=== PATIENT | female | born 1965 | race Caucasian/White ===

== ENCOUNTER → 2016-12-22 | Outpatient (CLI) | payer BC ==
[~2016-12-22] MED LIST: EZET10TA38; LEVO25TA34
--- NOTE | 2016-12-25 08:01 | MAMMOGRAPHY REPORT ---
BILATERAL DIGITAL SCREENING MAMMOGRAM TOMOSYNTHESIS WITH CAD: 12/22/2016 CLINICAL HISTORY: Routine screening. Patient has no complaints. TECHNIQUE: Breast tomosynthesis in addition to standard 2D mammography was performed. Current study was also evaluated with a Computer Aided Detection (CAD) system. COMPARISON: Comparison is made to exams dated: 09/03/2015 mammogram, 04/28/2014 mammogram, and 2012 mammogram - [facility]. BREAST COMPOSITION: The tissue of both breasts is almost entirely fatty. FINDINGS: No suspicious masses, calcifications, or areas of architectural distortion are noted in ei ther breast. There has been no significant interval change compared to prior exams. IMPRESSION: ACR BI-RADS CATEGORY 1: NEGATIVE There is no mammographic evidence of malignancy. A 1 year screening mammogram is recommended. The pa tient will receive written notification of the results. Approximately 10% of breast cancers are not detected with mammography. A negative mammographic report should not delay biopsy if a clinically suggestive mass is present. Delfina Pérez M.D. ah/:12/22/2016 15:53:24 Regional Hr Manager: Rosa Alas RT(R)(M)(BD), [facility] letter sent: Normal 1/2 BI-RADS Code: ACR BI-RADS Category 1: Negative
== END | disposition home or self-care (01) ==
LOC: C.MAMM 15:15
PROVIDERS: ATTEND Obstetrics & Gynecology
DX: Z12.31 Encounter for screening mammogram for malignant neoplasm of breast (principal)

== ENCOUNTER 2022-05-23 07:35 | Inpatient (IN) ==
--- NOTE | 2022-05-23 07:56 | Emergency Department Note ---
Impression & Plan Stroke, Right arm weakness ED Provider Note NAME: TORY CARRILLO AGE: 57 SEX: F : 1965 ARRIVES VIA: Walk-In INFORMANT: Patient, ED PROVIDER(S): Justin Chambers DO CHIEF COMPLAINT: Right arm weakness HPI: Patient is a 57-year-old female who presents to the ER as she went to bed around 1:00. She woke up at 5:00 and noticed weakness in the right arm. Some around 6:00 she started noticed weakness and heaviness in the right leg and could not walk. Right leg has resolved. She has paresthesias and weakness still in the right arm. Denies any headache or change in vision. No chest pain or shortness of breath. No nausea, vomiting, or diarrhea. No dysuria, urgency, or frequency. No other exacerbating or remitting factors. PAST MEDICAL HISTORY:See Below PAST SURGICAL HISTORY:See Below FAMILY HISTORY:See Below SOCIAL HISTORY:See Below HOME MEDICATIONS:See Below ALLERGIES:See Below VITALS:See Below PHYSICAL EXAMINATION: GENERAL: Sitting up in bed, alert, well appearing, well nourished, no distress, non-toxic EYE EXAM: normal conjunctiva. PERRL and EOM's grossly intact. OROPHARYNX: no exudate, no erythema, lips, buccal mucosa, and tongue normal and mucous membranes are moist NECK: supple, no nuchal rigidity, no adenopathy, non-tender LUNGS: Clear to auscultation. Normal chest wall mechanics HEART: no murmurs, S1 normal and S2 normal ABDOMEN: abdomen soft, non-tender, normo-active bowel sounds, no masses, no rebound or guarding. UPPER EXTREMITIES: upper extremities are grossly normal. LOWER EXTREMITIES: No pitting edema. NEURO EXAM: Normal sensorium, cranial nerves II-XII grossly intact, normal speech, flexion-extension left shoulder elbow wrist and grasp 5 out of 5. Right shoulder elbow wrist and grasp 4 out of 5. no gross weakness of legs. No drift. [id number] intact. MEDICAL DECISION MAKING: Patient is a 57-year-old female who presents the ER for right upper extremity weakness. She was seen in triage and taken immediately to CT. Stroke alert was called. She had right upper extremity deficit. CTAs of the head and neck were negative. Discussed with [facility] stroke neurology. Patient is not a candidate for TNKase as last known well was 1 AM. She was updated in regards to this as well as the at bedside. CTs of the head as well as angios of the head and neck were negative. Patient was updated bedside. Telestroke neurology recommended 325 of aspirin as well as 300 mg of Plavix. She had no bleeding risk factors. She was updated and admitted to the hospitalist for further work-up. Discussed with Justin Trimble and Aaron from [facility] in regards to presentation work-up and treatment. external records were reviewed. Triage Nursing notes reviewed. Limited review of prior medical records performed Vital Signs: reviewed and remarkable for no significant abnormalities Differential diagnosis: Differential Diagnosis includes but is not limited to ischemic Stroke, hemorrhagic stroke, bells palsy, mass, neoplasm, migraine headache, seizure, subarachnoid hemorrhage, TIA, and transient global amnesia. ER treatment provided: See below Diagnostics interpreted by me include EKG and cardiac monitoring as listed below: -Cardiac Monitoring: An order was placed for continuous cardiac monitoring. The monitor shows a rate of 80 with sinus rhythm. -ECG: none -Laboratory studies:Interpreted by me as stated above in MDM and shown below. Imaging studies: Xrays: As interpreted by me: Portable AP upright 1 view of the chest shows no focal infiltrate CTs show: CT angios of the head and neck was negative Consultation(s): As described in MDM Procedures:none PDMP:reviewed and no issues Critical Care: None Past Med/Surg History Medical History (Updated 05/23/22 @ 13:22 by Justin Chambers DO) H/O varicella Postmenopausal bleeding Varicella Ventral hernia Surgical History (Updated 06/23/19 @ 15:10 by Trang Al MD, FACOG) H/O section H/O knee surgery History of dental surgery History of hernia surgery History of tubal ligation Family History (Updated 06/23/19 @ 14:51 by Tory Robb) Mother Diabetes Father Hypertension Grandfather Myocardial infarction Denies family history of Ovarian cancer Prostate cancer Breast cancer Colorectal cancer Social History (Updated 10/05/21 @ 08:28 by Aliza John) Smoking Status: Never smoker Hx Alcohol Use: Yes Alcohol type: wine Hx Substance Use: No Preferred Language: Sri [place]ankan Communication Ability: Effective Transformation Coach Required: No Beliefs That Will Affect Care: None marital status: Current Living Situation: Spouse Feels Safe at Home: Yes Assistive Devices: Glasses Allergies Allergies Allergy/AdvReac Type Severity Reaction Status Date / Time No Known Allergies Verified 10/05/21 08:26 Home Meds Home Medications Medication Instructions Recorded Confirmed atorvastatin 40 mg tablet 40 mg PO PM 01/27/19 10/05/21 levothyroxine 200 mcg capsule 225 mcg PO QAM 01/27/19 10/05/21 Results & Data (ED) Vital Signs Vital Signs - 24 hr 05/23/22 07:37 05/23/22 08:19 05/23/22 08:30 Temperature 36.6 C Temperature Source Temporal Artery Scan Pulse Rate 85 78 69 Respiratory Rate 18 18 15 Respiratory Effort / Characteristics Non-Labored Spontaneous Respiratory Depth Normal Respiratory Pattern Regular Blood Pressure 147/95 H Blood Pressure Mean 112 Blood Pressure Position Sitting Pulse Oximetry 95 95 95 Oxygen Delivery Method Room Air Room Air Room Air Sepsis Recent Fever Within 48 Hours No Sepsis New/Unexplained Change in Mental Status No Sepsis Action Taken by Nursing No Action Required 05/23/22 08:41 Temperature Temperature Source Pulse Rate Respiratory Rate Respiratory Effort / Characteristics Respiratory Depth Respiratory Pattern Blood Pressure 129/88 Blood Pressure Mean 101 Blood Pressure Position Pulse Oximetry Oxygen Delivery Method Sepsis Recent Fever Within 48 Hours Sepsis New/Unexplained Change in Mental Status Sepsis Action Taken by Nursing Laboratory Data 05/23/22 08:05 05/23/22 08:05 Lab Results 05/23/22 05/23/22 05/23/22 Range/Units 08:04 08:05 08:05 WBC 6.47 (4.8-10.8) K/ul RBC 5.14 (3.93-5.22) M/uL Hgb 15.5 (12.0-16.0) g/dl Hct 46.5 H (34.1-44.9) % MCV 90.5 (80.0-100.0) fL MCH 30.2 (25.0-34.0) pg MCHC 33.3 (32.0-36.0) g/dL RDW Std Deviation 47.0 H (36.4-46.3) fL RDW Coeff of Carlos 14.0 (11.5-14.5) % Plt Count 329 (130-400) K/uL MPV 9.7 (9.4-12.3) fL Immature Gran % (Auto) 0.3 % Neut % (Auto) 64.1 % Lymph % (Auto) 24.7 % Morrison % (Auto) 7.6 % Eos % (Auto) 1.9 % Baso % (Auto) 1.4 % Neut # (Auto) 4.15 (1.4-6.5) K/uL Lymph # (Auto) 1.60 (1.2-3.4) K/uL Morrison # (Auto) 0.49 (0.24-0.82) K/uL Eos # (Auto) 0.12 (0-0.50) K/uL Baso # (Auto) 0.09 (0-0.2) K/uL Immature Gran # (Auto) 0.02 (0.00-0.02) K/uL ESR (0-30) mm/hr PT 10.8 (9.0-12.0) Seconds INR 1.0 (0.9-1.1) APTT 28.0 (21.0-31.0) Seconds PTT Ratio 1.0 Sodium (136-145) mmol/L Potassium (3.5-5.1) mmol/L Chloride (98-107) mmol/L Carbon Dioxide (21-32) mmol/L Anion Gap (3-11) BUN (6-23) mg/dl Creatinine (0.6-1.2) mg/dl Est Cr Clr Drug Dosing ml/min Est GFR ( Amer) ml/min Est GFR (Non-Af Amer) ml/min BUN/Creatinine Ratio (10-20) Glucose (70-99(Fasting)) mg/dl POC Glucose 89 (70-99) mg/dl Lactate (0.4-2.0) mmol/L Calcium (8.5-10.1) mg/dl Magnesium (1.7-2.4) mg/dl Total Bilirubin (0.2-1.0) mg/dl AST (13-39) U/L ALT (7-52) U/L Alkaline Phosphatase (34-104) U/L Troponin I High Sens (0-14) pg/ml Total Protein (6.0-8.3) gm/dl Albumin (3.4-5.0) gm/dl Globulin (2.5-4.0) gm/dl Albumin/Globulin Ratio (0.9-2) 05/23/22 05/23/2223 Range/Units 08:05 08:05 08:08 WBC (4.8-10.8) K/ul RBC (3.93-5.22) M/uL Hgb (12.0-16.0) g/dl Hct (34.1-44.9) % MCV (80.0-100.0) fL MCH (25.0-34.0) pg MCHC (32.0-36.0) g/dL RDW Std Deviation (36.4-46.3) fL RDW Coeff of Carlos (11.5-14.5) % Plt Count (130-400) K/uL MPV (9.4-12.3) fL Immature Gran % (Auto) % Neut % (Auto) % Lymph % (Auto) % Morrison % (Auto) % Eos % (Auto) % Baso % (Auto) % Neut # (Auto) (1.4-6.5) K/uL Lymph # (Auto) (1.2-3.4) K/uL Morrison # (Auto) (0.24-0.82) K/uL Eos # (Auto) (0-0.50) K/uL Baso # (Auto) (0-0.2) K/uL Immature Gran # (Auto) (0.00-0.02) K/uL ESR 34 H (0-30) mm/hr PT (9.0-12.0) Seconds INR (0.9-1.1) APTT (21.0-31.0) Seconds PTT Ratio Sodium 136 (136-145) mmol/L Potassium 3.9 (3.5-5.1) mmol/L Chloride 102 (98-107) mmol/L Carbon Dioxide 28 (21-32) mmol/L Anion Gap 6 (3-11) BUN 17 (6-23) mg/dl Creatinine 1.02 (0.6-1.2) mg/dl Est Cr Clr Drug Dosing 83.7 ml/min Est GFR ( Amer) 70.2 ml/min Est GFR (Non-Af Amer) 60.6 ml/min BUN/Creatinine Ratio 16.7 (10-20) Glucose 95 (70-99(Fasting)) mg/dl POC Glucose (70-99) mg/dl Lactate 1.2 (0.4-2.0) mmol/L Calcium 9.2 (8.5-10.1) mg/dl Magnesium 2.0 (1.7-2.4) mg/dl Total Bilirubin 0.5 (0.2-1.0) mg/dl AST 25 (13-39) U/L ALT 27 (7-52) U/L Alkaline Phosphatase 86 (34-104) U/L Troponin I High Sens 3.0 (0-14) pg/ml Total Protein 7.6 (6.0-8.3) gm/dl Albumin 4.3 (3.4-5.0) gm/dl Globulin 3.3 (2.5-4.0) gm/dl Albumin/Globulin Ratio 1.3 (0.9-2) Administered Medications Discontinued Medications Aspirin (Aspirin 325 Mg Ectab) [facility] Stop: 06/22/22 08:59 Last Admin: 05/23/22 10:44 Dose: 325 mg Documented By: LOY Clopidogrel Bisulfate (Clopidogrel Bisulfate 300 Mg Tab) 300 mg PO NOW STA Stop: 05/23/22 08:46 Last Admin: 05/23/22 09:05 Dose: 300 mg Documented By: LOY Ioversol (Optiray 320 500ml) 120 ml IV ONCE ONE Stop: 05/23/22 08:03 Last Admin: 05/23/22 08:02 Dose: 120 ml Documented By: CELIO Imaging Data Radiologist's Impression: Chest X-Ray 05/23/22 07:45 XR chest 1V portable HISTORY: 57 years-old Female neuro deficit, acute stroke suspected acute strokelike symptoms COMPARISON: None TECHNIQUE: AP view of the chest FINDINGS: Cardiac silhouette is enlarged. Ill-defined opacity of the right cardiophrenic angle is likely secondary to summation density with overlying pulmonary vasculature. No pneumothorax, pleural effusion, airspace consolidation or overt pulmonary edema. Degenerative changes of the shoulders and spine. IMPRESSION: No acute process. ACT 112: Negative or not required by law. The above report was generated using voice recognition software. It may contain grammatical, syntax or spelling errors. Electronically signed by: Christos Canchola M.D. 05/23/2022 8:[address] 05/23/22 07:45 CT head/brain wo con CLINICAL HISTORY: 57 years-old Female with neuro deficit, acute stroke suspected. Acute strokelike symptoms TECHNIQUE: Multiple axial CT images of the head were obtained without contrast. A dose lowering technique was utilized adhering to the principles of ALARA. CT DOSE: 720.95 mGycm COMPARISON: None. FINDINGS: No acute intracranial hemorrhage, midline shift, intracranial mass, hydro cephalus, territorial ischemia or abnormal extra-axial collection. Ill-defined decreased attenuation of the left temporal lobe is favored to be artifactual. The calvarium is intact. The paranasal sinuses, mastoid air cells, and middle ear cavities are clear. IMPRESSION: No acute intracranial abnormality. ACT 112: Negative or not required by law. The above report was generated using voice recognition software. It may contain grammatical, syntax or spelling errors. Electronically signed by: Christos Canchola M.D. 05/23/2022 7:59 AM Head CTA 05/23/22 07:45 CT angio head w con, CT angio neck with con CLINICAL HISTORY: 57 years-old Female with neuro deficit, acute stroke suspected. Acute strokelike symptoms with right arm weakness COMPARISON STUDY: Head CT of same day TECHNIQUE: Following the IV administration of 120 cc of Optiray, CT angiogram of the head and neck was performed from the aortic arch to the skull apex. Images are reviewed in the axial, sagittal, and coronal planes. 3-D MIPS images are created and assessed. IV contrast was administered without complication. All measurements were obtained according to NASCET criteria. A dose lowering marzena hnique was utilized adhering to the principles of ALARA. CT DOSE: 1139.80 mGycm FINDINGS: Three-vessel thoracic arch. Patency of the innominate and imaged subclavian arteries. The common carotid arteries are patent. Mild to moderate atherosclerotic plaque of the left carotid bulb and proximal left ICA without significant stenosis. The bilateral internal carotid arteries are patent. The bilateral anterior and middle cerebral arteries are also patent. Trifurcation of the A2 segments. The basilar and vertebral arteries are patent. There is at least mild multifocal luminal narrowing of the posterior cerebral arteries. There is no aneurysm, high-grade stenosis, or proximal branch occlusion identified. Dural sinuses appear patent. No abnormal intracranial enhancement. Lung apices appear clear. Unremarkable soft tissues. Degenerative changes of the cervical spine. IMPRESSION: Unremarkable CTA of the head and neck. ACT 112: Negative or not required by law. The above report was generated using voice recognition software. It may contain grammatical, syntax or spelling errors. Electronically signed by: Christos Canchola M.D. 05/23/2022 8:23 AM Neck CTA 05/23/22 07:45 CT angio head w con, CT angio neck with con CLINICAL HISTORY: 57 years-old Female with neuro deficit, acute stroke suspected. Acute strokelike symptoms with right arm weakness COMPARISON STUDY: Head CT of same day TECHNIQUE: Following the IV administration of 120 cc of Optiray, CT angiogram of the head and neck was performed from the aortic arch to the skull apex. Images are reviewed in the axial, sagittal, and coronal planes. 3-D MIPS images are created and assessed. IV contrast was administered without complication. All measurements were obtained according to NASCET criteria. A dose lowering technique was utilized adhering to the principles of ALARA. CT DOSE: 1139.80 mGycm FINDINGS: Three-vessel thoracic arch. Patency of the innominate and imaged subclavian arteries. The common carotid arteries are patent. Mild to moderate atherosclerotic plaque of the left carotid bulb and proximal left ICA without significant stenosis. The bilateral internal carotid arteries are patent. The bilateral anterior and middle cerebral arteries are also patent. Trifurcation of the A2 segments. The basilar and vertebral arteries are patent. There is at least mild multifocal luminal narrowing of the posterior cerebral arteries. There is no aneurysm, high-grade stenosis, or proximal branch occlusion identified. Dural sinuses appear patent. No abnormal intracranial enhancement. Lung apices appear clear. Unremarkable soft tissues. Degenerative changes of the cervical spine. IMPRESSION: Unremarkable CTA of the head and neck. ACT 112: Negative or not required by law. The above report was generated using voice recognition software. It may contain grammatical, syntax or spelling errors. Electronically signed by: Christos Canchola M.D. 05/23/2022 8:23 AM Discharge Plan Visit Data Chief Complaint: Arm Pain Stated Complaint: NUMB RIGHT ARM ,LEG FEELS , NAUSEOUS ED Provider: Justin Chambers Discharge Problem: Stroke, Right arm weakness Discharge Instructions Interventions: ED Discharge Assessment Last Done: 05/23/22 10:52
--- NOTE | 2022-05-23 08:00 | CT Scan Report ---
CT head/brain wo con CLINICAL HISTORY: 57 years-old Female with neuro deficit, acute stroke suspected. Acute strokelike s ymptoms TECHNIQUE: Multiple axial CT images of the head were obtained without contrast. A dose lowering tech nique was utilized adhering to the principles of ALARA. CT DOSE: 720.95 mGycm COMPARISON: None. FINDINGS: No acute intracranial hemorrhage, midline shift, intracranial mass, hydrocephalus, territorial ischem ia or abnormal extra-axial collection. Ill-defined decreased attenuation of the left temporal lobe is favored to be artifactual. The calvarium is intact. The paranasal sinuses, mastoid air cells, and middle ear cavities are clear . IMPRESSION: No acute intracranial abnormality. ACT 112: Negative or not required by law. The above report was generated using voice recognition software. It may contain grammatical, syntax o r spelling errors. Electronically signed by: Christos Canchola M.D. 05/23/2022 7:59 AM
[2022-05-23] MEDS ORDERED: OPTIRAY 320 500ml IV ONE (08:02)
--- NOTE | 2022-05-23 08:12 | XRay Report ---
XR chest 1V portable HISTORY: 57 years-old Female neuro deficit, acute stroke suspected acute strokelike symptoms COMPARISON: None TECHNIQUE: AP view of the chest FINDINGS: Cardiac silhouette is enlarged. Ill-defined opacity of the right cardiophrenic angle is likely second zina to summation density with overlying pulmonary vasculature. No pneumothorax, pleural effusion, air space consolidation or overt pulmonary edema. Degenerative changes of the shoulders and spine. IMPRESSION: No acute process. ACT 112: Negative or not required by law. The above report was generated using voice recognition software. It may contain grammatical, syntax o r spelling errors. Electronically signed by: Christos Canchola M.D. 05/23/2022 8:10 AM
[2022-05-23 08:21] LABS: Basophils # (auto) 0.09 K/uL (0-0.2); Basophils % (auto) 1.4 %; Eosinophils # (auto) 0.12 K/uL (0-0.50); Eosinophils % (auto) 1.9 %; Hematocrit (blood only) 46.5 % (34.1-44.9); Hemoglobin 15.5 g/dl (12.0-16.0); Immature Granulocytes # (auto) 0.02 K/uL (0.00-0.02); Immature Granulocytes % (auto) 0.3 %; Lymphocytes % (auto) 24.7 %; Mean Corpuscular Hemoglobin 30.2 pg (25.0-34.0); Mean Corpuscular Hgb Conc 33.3 g/dL (32.0-36.0); Mean Corpuscular Volume 90.5 fL (80.0-100.0); Mean Platelet Volume 9.7 fL (9.4-12.3); Monocytes # (auto) 0.49 K/uL (0.24-0.82); Monocytes % (auto) 7.6 %; Neutrophils # (auto) 4.15 K/uL (1.4-6.5); Neutrophils % (auto) 64.1 %; Platelet Count 329 K/uL (130-400); Red Blood Count 5.14 M/uL (3.93-5.22); White Blood Count 6.47 K/ul (4.8-10.8)
--- NOTE | 2022-05-23 08:25 | CT Scan Report ---
CT angio head w con, CT angio neck with con CLINICAL HISTORY: 57 years-old Female with neuro deficit, acute stroke suspected. Acute strokelike symptoms with right arm weakness COMPARISON STUDY: Head CT of same day TECHNIQUE: Following the IV administration of 120 cc of Optiray, CT angiogram of the head and neck wa s performed from the aortic arch to the skull apex. Images are reviewed in the axial, sagittal, and c oronal planes. 3-D MIPS images are created and assessed. IV contrast was administered without complic ation. All measurements were obtained according to NASCET criteria. A dose lowering technique was uti lized adhering to the principles of ALARA. CT DOSE: 1139.80 mGycm FINDINGS: Three-vessel thoracic arch. Patency of the innominate and imaged subclavian arteries. The common muller tid arteries are patent. Mild to moderate atherosclerotic plaque of the left carotid bulb and proxima l left ICA without significant stenosis. The bilateral internal carotid arteries are patent. The bila teral anterior and middle cerebral arteries are also patent. Trifurcation of the A2 segments. The bas ilar and vertebral arteries are patent. There is at least mild multifocal luminal narrowing of the po sterior cerebral arteries. There is no aneurysm, high-grade stenosis, or proximal branch occlusion id entified. Dural sinuses appear patent. No abnormal intracranial enhancement. Lung apices appear clear. Unremarkable soft tissues. Degenerative changes of the cervical spine. IMPRESSION: Unremarkable CTA of the head and neck. ACT 112: Negative or not required by law. The above report was generated using voice recognition software. It may contain grammatical, syntax o r spelling errors. Electronically signed by: Christos Canchola M.D. 05/23/2022 8:23 AM
[2022-05-23 08:34] LABS: Prothrombin Time 10.8 Seconds (9.0-12.0)
[2022-05-23 08:44] LABS: Albumin Globulin Ratio 1.3 (0.9-2); Albumin Level 4.3 gm/dl (3.4-5.0); BUN Creatinine Ratio 16.7 (10-20); Bilirubin,Total 0.5 mg/dl (0.2-1.0); Calcium 9.2 mg/dl (8.5-10.1); Creatinine Clr Calc Pharmacy 83.7 ml/min; Est GFR (African American) 70.2 ml/min; Est GFR (Non-African American) 60.6 ml/min; Globulin 3.3 gm/dl (2.5-4.0); Potassium 3.9 mmol/L (3.5-5.1); Total Protein 7.6 gm/dl (6.0-8.3)
[2022-05-23] MEDS ORDERED: CLOPIDOGREL BISULFATE 300 MG TAB PO STA (08:45)
[2022-05-23] MEDS ORDERED: PHARMACIST DISCHARGE MED REC CONSULT PRN (08:54)
[2022-05-23] MEDS ORDERED: ASPIRIN 325 MG ECTAB PO SCH (09:00)
--- NOTE | 2022-05-23 09:29 | History & Physical Report ---
Date of Service May 23, 2022 Assessment & Plan (1) Unilateral weakness: Plan: 57-year-old female with a history of hypothyroidism, hyperlipidemia, and class III obesity who presents to [facility] for evaluation of right upper extremity and right lower extremity sensation abnormalities as well as weakness, currently of unknown etiology. Unilateral (RIGHT) Weakness, Sensation Abnormalities Acute onset right upper extremity and right lower extremity weakness that began sometime between [id number] on 05/23 that is persisting through time of admission, but reportedly improved Work-up as follows: Admission labs not demonstrating any appreciable hematologic or metabolic abnormalities CT of the head, CTAhead/neck without acute abnormalities or evidence of blockage Admission ECG demonstrating normal sinus rhythm Differential includes TIA/CVA, atypical/complicated migraine, spinal compressive etiology, demyelinating disease, partial seizure, neuropsychiatric Received Plavix 300mg daily Obtain MRI for further clarification Check lipid, A1c, ESR Will consider TTE pending MRI Neurochecks as scheduled Admit to monitored bed Consider neurology consult pending w/u above (2) Hypothyroidism: Plan: Continue levothyroxine to 25 mcg daily (3) High cholesterol: Plan: Continue atorvastatin 40 mg, can consider going up to 80 mg pending work-up above Check lipid panel, A1c Plan Code: Full code Diet: N.p.o. pending bedside swallow assessment Prophylaxis: SCDs Disposition: MedSurg with telemetry History of Present Illness Primary Care Provider: Vishal Desai MD 57-year-old female with a history of hypothyroidism and hyperlipidemia who presents to [facility] for evaluation of right upper extremity and right lower extremity sensation abnormalities as well as weakness. Tory tells me that she woke up around 1 AM to lay on the couch, which is not abnormal for her. Then, she woke around 5 AM, and noticed that her right arm felt "weird ". She describes it as a numbness and tingling sensation that started at her shoulder and went all the way down to her hands. She had difficulty appreciating the extent/degree of weakness, but felt like she had to put effort into moving her arm. She got up to use the bathroom, when she noticed that her right leg felt like "Jell-O. "Her , Semaj, noticed that she was having difficulty ambulating. She had to think much more effort fully about moving this right leg 2. She endorses this feeling of sensation abnormalities extending down this right leg 2. She denies any issues in her left side. Her denies noticing any facial droop or speech abnormalities. She denies any history of migraines, neck pain, head injury, or recent trauma. Around the time of this event, she denies any headache, blurred vision, double vision. She denies any chest pain, palpitations, shortness of breath. She does say that she felt intermittently nauseous throughout this episode, but did not vomit. She denies any recent fevers, chills, sweats. Medications reviewed and include levothyroxine 225 mcg daily as well as atorv astatin 40 mg daily. She is not on any oral supplementation or other medications. In the ER, patient was found to be hemodynamically stable. She was found to have right upper extremity and right lower extremity weakness. A stroke alert was called, TNKase was not given. CT of the head, CTA of the head and neck did not demonstrate any acute abnormalities or blockages. Her initial lab work-up d id not demonstrate any appreciable hematologic or metabolic abnormalities. She was given aspirin and Plavix. Medicine was subsequently consulted for admission --- This documentation was created utilizing dictation software. As such, syntax, grammatical, and word-choice errors may be present. Notes are screened prior to submission in an attempt to reduce these errors. If there are any questions or concerns, please contact the author directly for clarification. Allergies Allergy/AdvReac Type Severity Reaction Status Date / Time No Known Allergies Verified 10/05/21 08:26 Home Medications Medication Instructions Recorded Confirmed Type atorvastatin 40 mg tablet 40 mg PO PM 01/27/19 10/05/21 History levothyroxine 200 mcg capsule 225 mcg PO QAM 01/27/19 10/05/21 History Past Med/Surg History Medical History (Updated 05/23/22 @ 13:22 by Justin Chambers DO) H/O varicella Postmenopausal bleeding Varicella Ventral hernia Surgical History (Updated 06/23/19 @ 15:10 by Trang Al MD, FACOG) H/O section H/O knee surgery History of dental surgery History of hernia surgery History of tubal ligation Family History (Updated 06/23/19 @ 14:51 by Tory Robb) Mother Diabetes Father Hypertension Grandfather Myocardial infarction Denies family history of Ovarian cancer Prostate cancer Breast cancer Colorectal cancer Social History (Updated 10/05/21 @ 08:28 by Aliza John) Smoking Status: Never smoker Hx Alcohol Use: Yes Alcohol type: wine Hx Substance Use: No Preferred Language: Yoruba Communication Ability: Effective Race Starter Required: No Beliefs That Will Affect Care: None marital status: Current Living Situation: Spouse Feels Safe at Home: Yes Assistive Devices: Glasses Review of Systems Review of Systems: as per HPI Physical Exam Physical Exam: General: 57-year old female who is alert, oriented, and appears in no acute distress. HEENT: NCAT. - Eyes - Sclera are white, anicteric, and without injection. - Mouth - MMM - Neck - supple, no appreciable JVD Cardiac: Normal rate and regular rhythm; S1 and S2 present with no murmurs, rubs, or gallops. Pulmonary: Good respiratory effort with symmetric expansion of the chest. No use of accessory muscles. Lungs were clear to auscultation bilaterally with no crackles or wheezes. Abdominal: Normoactive bowel sounds. Abdomen was soft, nondistended, and non- tender to palpation. Neuro: - Cranial Nerves: CN I, IX, XIII, and X - not assessed. II - PERRL. III/IV/ - EOMs WNL. No nystagmus. V - Facial sensation in tact in all three divisions; jaw opening WNL. VII - Patient is able to smile symmetrically and keep eyes close against resistance. IX - Soft palate raises equally and appropriately while saying "ah." XI - Patient is able to shrug shoulders against resistance. XII - patient is able to stick out tongue and deviate from [id number]-fo-zusu appropriately. - Motor: UE - Finger, wrist, elbow, and shoulder strength is 4/5 in the RUE, most pronounced at the elbow, but is also noted on wrists/shoulders. LE - Hip, knee, and ankle strength is 4/5 in the RLE, most pronounced at the hip. - Sensation: To light touch, RUE abnormalities are pronounced on the medial surface compared to lateral, but are notably different compared to LUE. No abnormalities in LEs reported during exam. - Reflexes - Biceps 1+ b/l; patellar - unable to appreciate. No clonus. - [id number]: WNL b/l. No dysmetria. Extremities: Upper and lower extremities are warm and well perfused. No peripheral edema in the lower extremities bilaterally Psych: Well-developed, well-nourished, appropriately dressed for occasion. Behavior is cooperative and appropriate. Affect is WNL. Insight is appropriate. Results & Data Results & Data ([facility]) Vital Signs (Past 12 Hours) Vital Signs Temp Pulse Resp BP Pulse Ox O2 Del Method 05/23/22 08:41 129/88 05/23/22 08:30 69 15 95 Room Air 05/23/22 08:19 78 18 95 Room Air 05/23/22 07:37 36.6 C 85 18 147/95 H 95 Room Air Supervising Physician Co-Signing Physician Notes I personally examined the patient and verified all cardoza points of history and exam, discussed case, and agree with decision making with Dr Lennon. Numbness generally feeling better, right arm still a little bit heavy whenever I see her. Vitals noted, in general she is awake and alert pleasant no distress. HEENT normocephalic atraumatic mucous membranes moist. Breathing unlabored no accessory muscle use good effort. Skin shows no rashes no pallor or icterus. StrokeMRI showing small area of restricted diffusion, and a region that fits reasonably well with her symptoms. Hyperlipidemia is her only clearly notable risk factor for small vessel diseaseawaiting A1c, as well as awaiting lipid panel to look at the status of her 1 known risk factor, follow blood pressure. Continue antiplatelet. Does not have any large vessel disease. Continue rhythm monitoring, await echocardiogram. Otherwise as above. Resident Activity Tracking Resident Involvement: Resident Care Provided Care Provided: Adult [facility] Medicine
--- NOTE | 2022-05-23 18:18 | Magnetic Resonance Report ---
Brain MRI WITHOUT CONTRAST HISTORY: acute onset RUE/RLE weakness, paresthesias TECHNIQUE: Multiplanar multisequence MRI of the brain was performed without the use of contrast. COMPARISON STUDY: Head CT 05/23/2022. FINDINGS: There is subtle small focus of restricted diffusion within the left frontoparietal perivent ricular white matter best seen on axial image 16. This may represent a small acute to subacute infarc t. The midline structures are intact. The paranasal sinuses and mastoid air cells are clear. The orbi ts are unremarkable. The major vascular flow-voids at the skull base are well-maintained. The ventric les and sulci are within normal limits. There is no mass, hematoma, or midline shift. IMPRESSION: Questionable small focus of restricted diffusion within the left frontoparietal periventricular white matter as described above. This could represent a small acute to subacute infarct. ACT 112: Negative or not required by law. Electronically signed by: Riaz Oliveira M.D. 05/23/2022 6:16 PM
[2022-05-23] MEDS ORDERED: ACETAMINOPHEN 325 MG TAB PO PRN (18:21)
--- NOTE | 2022-05-23 18:55 | Billing Data ---
Date of Service May 23, 2022 Coding Level of Care Code 59181 INT INP/OBS CARE
[2022-05-23] MEDS ORDERED: ATORVASTATIN 40 MG TAB PO SCH (21:00)
[2022-05-23] MEDS ORDERED: Flu Vaccine (Fluarix) 0.5mL SYR (Standard Dose) IM ONE (22:15)
[2022-05-24] MEDS ORDERED: LEVOTHYROXINE SODIUM 112 MCG TABLET PO SCH (06:30)
[2022-05-24 07:51] LABS: Basophils % (auto) 1.4 %; Eosinophils # (auto) 0.13 K/uL (0-0.50); Eosinophils % (auto) 1.8 %; Hematocrit (blood only) 44.8 % (34.1-44.9); Immature Granulocytes # (auto) 0.02 K/uL (0.00-0.02); Immature Granulocytes % (auto) 0.3 %; Lymphocytes # (auto) 1.86 K/uL (1.2-3.4); Lymphocytes % (auto) 26.3 %; Mean Corpuscular Hemoglobin 29.9 pg (25.0-34.0); Mean Corpuscular Hgb Conc 33.5 g/dL (32.0-36.0); Mean Corpuscular Volume 89.4 fL (80.0-100.0); Mean Platelet Volume 9.8 fL (9.4-12.3); Monocytes # (auto) 0.59 K/uL (0.24-0.82); Monocytes % (auto) 8.4 %; Neutrophils # (auto) 4.36 K/uL (1.4-6.5); Neutrophils % (auto) 61.8 %; Platelet Count 317 K/uL (130-400); RDW Coefficient of Variation 14.3 % (11.5-14.5); RDW Standard Deviation 46.6 fL (36.4-46.3); Red Blood Count 5.01 M/uL (3.93-5.22); White Blood Count 7.06 K/ul (4.8-10.8)
[2022-05-24] MEDS ORDERED: ASPIRIN 81 MG CHEW PO SCH (09:00)
[2022-05-24] MEDS ORDERED: CLOPIDOGREL BISULFATE 75 MG TAB PO SCH (09:00)
[2022-05-24] MEDS ORDERED: ASPIRIN 81 MG ECTAB PO SCH (09:00)
--- NOTE | 2022-05-24 09:07 | XCELERA ---
[id number]
--- NOTE | 2022-05-24 09:37 | Discharge Summary ---
Date of Service May 24, 2022 Admission HPI Per Admitting Provider 57-year-old female with a history of hypothyroidism and hyperlipidemia who presents to [facility] for evaluation of right upper extremity and right lower extremity sensation abnormalities as well as weakness. Tory tells me that she woke up around 1 AM to lay on the couch, which is not abnormal for her. Then, she woke around 5 AM, and noticed that her right arm felt "weird ". She describes it as a numbness and tingling sensation that started at her shoulder and went all the way down to her hands. She had difficulty appreciating the extent/degree of weakness, but felt like she had to put effort into moving her arm. She got up to use the bathroom, when she noticed that her right leg felt like "Jell-O. "Her , Semaj, noticed that she was having difficulty ambulating. She had to think much more effort fully about moving this right leg 2. She endorses this feeling of sensation abnormalities extending down this right leg 2. She denies any issues in her left side. Her denies noticing any facial droop or speech abnormalities. She denies any history of migraines, neck pain, head injury, or recent trauma. Around the time of this event, she denies any headache, blurred vision, double vision. She denies any chest pain, palpitations, shortness of breath. She does say that she felt intermittently nauseous throughout this episode, but did not vomit. She denies any recent fevers, chills, sweats. Medications reviewed and include levothyroxine 225 mcg daily as well as atorvastatin 40 mg daily. She is not on any oral supplementation or other medications. In the ER, patient was found to be hemodynamically stable. She was found to have right upper extremity and right lower extremity weakness. A stroke alert was called, TNKase was not given. CT of the head, CTA of the head and neck did not demonstrate any acute abnormalities or blockages. Her initial lab work-up did not demonstrate any appreciable hematologic or metabolic abnormalities. She was given aspirin and Plavix. Medicine was subsequently consulted for admission --- This documentation was created utilizing dictation software. As such, syntax, grammatical, and word-choice errors may be present. Notes are screened prior to submission in an attempt to reduce these errors. If there are any questions or concerns, please contact the author directly for clarification. Admission Exam Per Admitting Provider General: 57-year old female who is alert, oriented, and appears in no acute distress. HEENT: NCAT. - Eyes - Sclera are white, anicteric, and without injection. - Mouth - MMM - Neck - supple, no appreciable JVD Cardiac: Normal rate and regular rhythm; S1 and S2 present with no murmurs, rubs, or gallops. Pulmonary: Good respiratory effort with symmetric expansion of the chest. No use of accessory muscles. Lungs were clear to auscultation bilaterally with no crackles or wheezes. Abdominal: Normoactive bowel sounds. Abdomen was soft, nondistended, and non- tender to palpation. Neuro: - Cranial Nerves: CN I, IX, XIII, and X - not assessed. II - PERRL. III/IV/ - EOMs WNL. No nystagmus. V - Facial sensation in tact in all three divisions; jaw opening WNL. VII - Patient is able to smile symmetrically and keep eyes close against resistance. IX - Soft palate raises equally and appropriately while saying "ah." XI - Patient is able to shrug shoulders against resistance. XII - patient is able to stick out tongue and deviate from [id number] appropriately. - Motor: UE - Finger, wrist, elbow, and shoulder strength is 4/5 in the RUE, most pronounced at the elbow, but is also noted on wrists/shoulders. LE - Hip, knee, and ankle strength is 4/5 in the RLE, most pronounced at the hip. - Sensation: To light touch, RUE abnormalities are pronounced on the medial surface compared to lateral, but are notably different compared to LUE. No abnormalities in LEs reported during exam. - Reflexes - Biceps 1+ b/l; patellar - unable to appreciate. No clonus. - [id number]: WNL b/l. No dysmetria. Extremities: Upper and lower extremities are warm and well perfused. No peripheral edema in the lower extremities bilaterally Psych: Well-developed, well-nourished, appropriately dressed for occasion. Behavior is cooperative and appropriate. Affect is WNL. Insight is appropriate. Principal Diagnosis 30 Discharge Exam General: 57-year old female who is alert, oriented, and appears in no acute distress. HEENT: NCAT. - Eyes - Sclera are white, anicteric, and without injection. - Mouth - MMM - Neck - supple, no appreciable JVD Cardiac: Normal rate and regular rhythm; S1 and S2 present with no murmurs, rubs, or gallops. Pulmonary: Good respiratory effort with symmetric expansion of the chest. No use of accessory muscles. Lungs were clear to auscultation bilaterally with no crackles or wheezes. Abdominal: Normoactive bowel sounds. Abdomen was soft, nondistended, and non- tender to palpation. Neuro: - Cranial Nerves: CN I, IX, XIII, and X - not assessed. II - PERRL. III/IV/ - EOMs WNL. No nystagmus. V - Facial sensation in tact in all three divisions; jaw opening WNL. VII - Patient is able to smile symmetrically and keep eyes close against resistance. IX - Soft palate raises equally and appropriately while saying "ah." XI - Patient is able to shrug shoulders against resistance. XII - patient is able to stick out tongue and deviate from [id number]-[id number] appropriately. - Motor: UE - Finger, wrist, elbow, and shoulder strength is 5/5 in the RUE. LE - Hip, knee, and ankle strength is 5/5 in the RLE - Sensation: To light touch, no UE or LE abnormalities noted. - Reflexes - Biceps 1+ b/l; patellar - unable to appreciate. No clonus. - [id number]-cl-[id number]: WNL b/l. No dysmetria. Extremities: Upper and lower extremities are warm and well perfused. No peripheral edema in the lower extremities bilaterally Psych: Well-developed, well-nourished, appropriately dressed for occasion. Behavior is cooperative and appropriate. Affect is WNL. Insight is appropriate. Discharge Data Allergies Allergy/AdvReac Type Severity Reaction Status Date / Time No Known Allergies Verified 10/05/21 08:26 Consultations 05/23/22 08:55 ED Decision to Admit Stat Ordered Studies 05/23/22 07:45 CT angio head w con Stat CT angio neck with con Stat CT head/brain wo con Stat 05/23/22 08:54 MR brain wo con Routine Hospital Course (1) Unilateral weakness: 57-year-old female with a history of hypothyroidism, hyperlipidemia, and class III obesity who presents to [facility] for evaluation of right upper extremity and right lower extremity sensation abnormalities as well as weakness, currently of unknown etiology. Frontoparietal ischemic stroke Acute onset right upper extremity and right lower extremity weakness with sensory deficits that began sometime between [id number] on 05/23 that persisted through time of admission, but reportedly improved Work-up as follows: Admission labs not demonstrating any appreciable hematologic or metabolic abnormalities CT of the head, CTAhead/neck without acute abnormalities or evidence of blockage Admission ECG demonstrating normal sinus rhythm - A1C 5.5% - TTE normal - MRI brain w/ contrast- There is subtle small focus of restricted diffusion within the left frontoparietal periventricular white matter best seen on axial image 16. This may represent a small acute to subacute infarct. The midline structures are intact. The paranasal sinuses and mastoid air cells are clear. The orbits are unremarkable. The major vascular flow-voids at the skull base are well-maintained. The ventricles and sulci are within normal limits. There is no mass, hematoma, or midline shift. - Stroke likely atherosclerotic in origin - Pt's symptoms fully resolved by time of discharge - Discharged on aspirin 81 mg + clopidogrel 75 mg daily x3 weeks, atorvastatin increased to 80 mg - SBPs frequently > 130 in hospital, likely secondary to stroke. Advised to monitor at home until f/u in 1 week with PCP (2) Hypothyroidism: Continue levothyroxine 225 mcg daily (3) High cholesterol: Atorvastatin 40 mg increased to 80 mg on discharge - Lipid profile- total 231, LDL 155, HDL 56, Triglycerides 99 Total Time Total Time Spent Total Time Spent (In Minutes): <30 Discharge Plan Discharge Items Patient Disposition: Home - Self-Care Reason For Visit: RUE/RLE WEAKNESS Discharge Diagnosis: Stroke Activity: Resume your previous activity Non-emergency contact: Primary Care Provider Call non-emergency contact if: you have any medication questions and your symptoms worsen Follow-up/Referrals: Vishal Desai MD [Primary Care Provider] - Diet: Heart Healthy Addtl Attending Provider Instructions: You were seen in [facility] for evaluation of right-sided weakness. During your stay here, you underwent extensive evaluation determine the cause of your symptoms. Thankfully, your CT scanswhich looked at your blood vesselsdid not demonstrate any big or obvious clog edges. Your MRI scan, which as we discussed allows us to see smaller features that cannot be noticed on a CT scan, did show evidence of a very small stroke in an area of your brain that likely explains your symptoms. Thankfully, you showed consistent improvement during her stay here - which is the most important. Management of stroke outside the hospital primarily consists of prevention of risk factors that can lead to further strokes. Most notably, this includes engaging with a healthy lifestyle (regular physical activity, dietary control) as well as utilization of certain medicines. These medicines aimed to lower cholester, while also stabilizing "micro-cloggage" so that it doesn't go anywhere it's not meant to be. Please note the following medications that have been added/changed/removed: Increase atorvastatin from 40 mg daily to 80 mg daily Initiate aspirin 81 mg (regular baby aspirin) for 21 days then stop Initiate clopidogrel (Plavix) 75 mg indefinitely We have obtained a follow up appointment with Dr. Fisher on 05/31 at 10:[address] Desai overseeing the case. A copy of the discharge summary will also be sent to them, which outlines all the imaging and care that you were provided while here. If you experience worsening right-sided weakness, new headache, changes in vision, recurrent nausea and vomiting, chest pain, palpitations, shortness of breath, or other worrisome symptoms, please report to the ER immediately for evaluation. It was a pleasure for caring for you while here, we wish you all the best in your recovery. Pending Studies at Discharge: No Stand-Alone Forms: My [facility] [place], Work/School Release, Medications to Prevent Stroke Medications and DC Order Prescriptions: New atorvastatin 40 mg Tablet 80 mg PO PM Qty: 60 1RF clopidogrel 75 mg Tablet 75 mg PO QAM Qty: 30 1RF aspirin 81 mg Tablet,Delayed Release (Dr/Ec) 81 mg PO QAM Qty: 30 0RF Continued levothyroxine 200 mcg Capsule 225 mcg PO QAM Label Comments: TAKE 1 (200) TAB AND 1 (25) TAB , TOTAL 225 Discontinued atorvastatin 40 mg Tablet 40 mg PO PM Discharge Orders: Discharge Order (Routine); Ordered 05/24/22 Ordered By: Laurel Murphy Admission Data Admit Date/Time: 05/23/22 08:55 Attending Provider: Justin De Paz Admit Provider: Justin Lennon Primary Care Provider: Vishal Desai Other Providers: Justin De Paz Other Interventions: Discharge Summary Assessment (RN) Last Done: 05/24/22 17:42 Supervising Physician Co-Signing Physician Notes I personally examined the patient and verified all cardoza points of history and exam, discussed case, and agree with decision making with Dr Murphy. Numbness is totally resolved. Extensive discussion with patient and on lifestyle change, as well as med management. Vitals noted, in general she is awake and alert pleasant no distress. HEENT normocephalic atraumatic mucous membranes moist. Breathing unlabored no accessory muscle use good effort. Skin shows no rashes no pallor or icterus. CVAalmost certainly small vessel disease driven predominantly by hyperlipidemia. Increased Lipitor from 40 mg to 80 mgoutpatient follow-upMay need Zetia as well. Extensive discussion on lifestyle change (eating and exercise). Dual antiplatelets for 3 weeks, then aspirin alone. Stable for home. Otherwise as above. Resident Activity Tracking Resident Involvement: Resident Care Provided Care Provided: Adult Hospital Medicine
[2022-05-24 09:55] LABS: BUN Creatinine Ratio 15.6 (10-20); Calcium 9.6 mg/dl (8.5-10.1); Chol HDL Ratio 4.1 (0-5); Creatinine Clr Calc Pharmacy 77.6 ml/min; Est GFR (African American) 64.8 ml/min; Est GFR (Non-African American) 55.9 ml/min; Potassium 4.9 mmol/L (3.5-5.1)
[2022-05-24 09:56] LABS: Estimated Average Glucose 111 mg/dl; Hemoglobin A1C 5.5 % (4.5-5.6)
[2022-05-24] MEDS ORDERED: STROKE PATIENT DISCHARGE STA (17:00)
--- NOTE | 2022-05-24 19:03 | Billing Data ---
Date of Service May 24, 2022 Coding Level of Care Code HOSP INP/OBS DISCH 30 MIN/LESS
[2022-05-24] MEDS ORDERED: ATORVASTATIN 40 MG TAB PO SCH (21:00)
--- NOTE | 2022-05-25 05:51 | Electrocardiogram Report ---
Test Reason : Blood Pressure : / mmHG Vent. Rate : 083 BPM Atrial Rate : 083 BPM P-R Int : 178 ms QRS Dur : 070 ms QT Int : 374 ms P-R-T Axes : 066 -24 010 degrees QTc Int : 439 ms Sinus rhythm Possible Left atrial enlargement Low voltage QRS Nonspecific T wave abnormality No previous ECGs available Confirmed by Chase Collins ([id number]) on 05/25/2022 5:50:50 AM Referred By: REFERRED SELF Confirmed By:Chase Collins
--- NOTE | 2022-05-25 09:30 | Pharmacy Report ---
- Date of Service May 25, 2022 - Pharmacy CVA/TIA Medication Review Medications to Prevent Stroke handout has been added to the patients discharge packet. Antiplatelet(s) * Aspirin 81 mg PO daily x 21 days * Plavix 75 mg PO daily x indefinitely Cholesterol * High intensity statin: atorvastatin 80 mg daily DVT Prophylaxis * SCD knee Therapeutic Anticoagulation * No history of Afib/Aflutter noted Type 2 Diabetes * Patient does not have T2DM
--- NOTE | 2022-05-25 11:25 | Pharmacy Report ---
Pharmacist Stroke Counseling - Date of Service May 25, 2022 - Scope: Pharmacy has been consulted to provide medication discharge counseling for this patient admitted with ischemic stroke as per the Pharmacist Discharge Counseling for Stroke Patients Protocol. - Medications on Discharge: Home Medications Medication Instructions Recorded Confirmed levothyroxine 200 mcg capsule 225 mcg PO QAM 01/27/19 10/05/21 New Rx's Medication Instructions Recorded aspirin 81 mg tablet,delayed 81 mg PO QAM #30 tabs 05/24/22 release atorvastatin 40 mg tablet 80 mg PO PM #60 tabs 05/24/22 clopidogrel 75 mg tablet 75 mg PO QAM #30 tabs 05/24/22 - Action: The above medications, specifically ones for stroke treatment/prophylaxis, have been reviewed in detail with the patient prior to discharge. This includes indication, common adverse reactions, drug interactions, and medication administration. Medication counseling has been employed using the teach-back method to ensure understanding. - Outcome: The patient demonstrated understanding of the medications. Additional comments: - Patient aware to take both Aspirin and Plavix for 21 days then stop Aspirin and continue Plavix indefinitely. - Counseled patient on bleeding risk and signs/symptoms of internal bleeding. - Counseled patient on interaction between Plavix and OTC heartburn medications. Thank you for allowing pharmacy to be involved in the care of this patient. Please call [phone] with any additional questions
== END 2022-05-24 18:41 | disposition home or self-care (01) | DRG 65 ==
LOC: ED 07:35 → EDINP 08:55 → 2N 10:52

== ENCOUNTER 2024-06-24 04:58 | Observation (INO) ==
--- NOTE | 2024-06-12 14:42 | Anesthesiology Consultation ---
Date of Service June 12, 2024 Assessment & Plan (1) Encounter for pre-operative examination: Chart Review Chart Review: Pending: Refer to Additional Notes / Consult section (surgeon H&P states that pt needs PCP clearance (Pravin 05/30/24)) and Patient NOT seen in Pre Admission Testing -Pt currently scheduled as 23 hours observation. Per anesthesia guidelines, patient is not an acceptable candidate for OPJ (morbid obesity) -Infectious Disease screening: Per PAT nursing assessment on 06/12/24, No known infectious disease contacts in past 10 days or current infectious disease symptoms. No recent travel outside the country. History Surgery Operation Date: 06/24/24 07:00 Proposed Procedures p Left Total Knee Arthroplasty - Brice Franks MD Height/Weight Height: 5 ft 6 in Weight: 117.934 kg Allergies Allergy/AdvReac Type Severity Reaction Status Date / Time No Known Drug Allergies Allergy Verified 06/12/24 13:02 Medications Home Medications Medication Instructions Recorded Confirmed Last Taken levothyroxine 200 mcg capsule 225 mcg PO QAM 01/27/19 06/12/24 08/05/23 07:00 atorvastatin 80 mg tablet 80 mg PO PM 07/19/23 06/12/24 08/05/23 19:00 aspirin 81 mg tablet 81 mg PO QAM 07/24/23 06/12/24 08/05/23 07:00 tirzepatide (weight loss) 2.5 2.5 mg subcut WK 05/29/24 06/12/24 Unknown mg/0.5 mL subcutaneous pen injector (Zepbound) naproxen sodium 220 mg tablet 220 mg PO Q12H PRN Pain 06/12/24 06/12/24 Unknown (Aleve) Past Medical History Medical History (Updated 06/12/24 @ 14:33 by Soila Kerr PA-C) Arthritis B/L knees High cholesterol History of COVID-2022 - resolved History of CVA (cerebrovascular accident) Small ischemic stroke 05/2022 with [place] residual [place] [facility] [place] Hx of cancer of uterus grade 1 and reason for hysterectomy per pt > no chemo or rad. Hypothyroidism Morbid obesity on Zepbound for wt loss Past Family History Family History Mother Diabetes Father Hypertension Grandfather Myocardial infarction Denies family history of Ovarian cancer Prostate cancer Breast cancer Colorectal cancer Past Surgical History Surgical History (Updated 06/12/24 @ 14:33 by Soila Kerr PA-C) H/O section H/O knee surgery Right knee arthroscopy, chondroplasty, loose body removal (02/12/19): LMA#5 at [facility], atraumatic History of breast biopsy 02/2022 benign History of dental surgery History of dilatation and curettage D&C hysteroscopy 08/06/23; LMA#4 History of hernia surgery Umbilical History of hysterectomy 09/2023 History of tubal ligation Social History Smoking Status: Never smoker Do You Dip or Chew Tobacco: No Hx Alcohol Use: Yes Alcohol type: wine alcohol intake frequency: holidays/special occasions only Hx Substance Use: No substance use type: does not use Lab Results Anesthesia Preop Results Results Anesthesia Widget: WBC 6.66 K/ul (4.8-10.8) 05/28/24 Hgb 14.9 g/dl (12.0-16.0) 05/28/24 Hct 44.7 % (37.0-47.0) 05/28/24 Plt 322 K/uL (130-400) 05/28/24 Na 140 mmol/L (136-145) 05/28/24 K 4.0 mmol/L (3.5-5.1) 05/28/24 Cl 106 mmol/L (98-107) 05/28/24 CO2 28 mmol/L (21-32) 05/28/24 BUN 16 mg/dl (6-23) 05/28/24 Creat 0.85 mg/dl (0.6-1.2) 05/28/24 Glucose Level 88 mg/dl (70-99(Fasting)) 05/28/24 PT 10.3 Seconds (9.0-12.0) 05/28/24 PTT 27 Seconds (21-31) 05/28/24 INR 0.9 (0.9-1.1) 05/28/24 Urine Color Yellow 05/29/24 Urine Appearance Clear (Clear) 05/29/24 Urine pH 6.0 (4.5-7.5) 05/29/24 Urine Specific [place] 1.004 (1.000-1.030) 05/29/24 Urine Protein Negative (Negative) 05/29/24 Urine Glucose (UA) Negative (Negative) 05/29/24 Urine Ketones Negative (Negative) 05/29/24 Urine Blood Negative (Negative) 05/29/24 Urine Nitrite Negative (Negative) 05/29/24 Urine Bilirubin Negative (Negative) 05/29/24 Urine Urobilinogen Negative (Negative) 05/29/24 Urine Leukocyte Esterase Negative (Negative) 05/29/24 Blood Type O Positive 05/28/24 Antibody Screen NEGATIVE 05/28/24 Testing Laboratory Results 05/28/24: urine culture; no growth Electrocardiogram Date: 07/24/23 Findings: + NSR @ (64bpm) Echocardiogram Date: 05/23/22 EF: 60-65% LV Function: normal RWMA: + none Valvular Disease: + no significant valvular disease small LV size with nl Systolic function. mild cLVH nl est RVSP
--- OUTSIDE RECORDS SUMMARY | 2024-06-24 05:04 | External Medical Summary | Continuity of Care Document ---
Author Name Unknown Organization [facility] [address] [address] [place] [address] [id number] Care Team Providers Care Agitator Operator Name Role Phone Yakov Desai Primary Care Physician [phone] Encounter [facility] [id number] Date(s): 05/30/24 - 05/30/24 [facility] [place] [facility] [address] [facility] [address] [place] [address] [phone] Encounter Diagnosis Encounter for pre-operative examination(Discharge Diagnosis) - 05/30/24 Arthritis of left knee(Discharge Diagnosis) - 05/30/24 Discharge Disposition: Home or Self Care Attending Physician: KERRIE Longoria Kimberly A Allergies, Adverse Reactions, Alerts No Known Allergies Assessment and Plan Extracted from: Title:Preoperative visit Author:KERRIE Longoria Ki mberly A Date:05/30/24 1.Encounter for pre-operat tracy examination Mimi seen for radha-operative risk stratification. They report no cardiac symptoms at rest or on exertion. They have no history of _ischemic heart disease, CHF, CVD, diabetes, EtOH/drug abuse, recent anticoagulant or antithrombotic use, personal or family history of coagulopathy, or CKD. They report no history of _undergoing a stress test, cardiac catheterization, or coronary revascularization. They report being able to achieve4-10METs of activity. _This patient's cardiac risk factors include history of CVA, no residual deficits. According to the RCRI, this number of risk factors stratifies the patient to ClassI, which carries with it a3.9%risk of major adverse cardiac event, such as WI, cardiacarrest, or .These risks, along with the risk of radha-operative stroke, were discussed with the patient, in light of the benefits of possible surgery._ wishes to proceed with the operation. This assessment was conveyed to the requesting physician/surgery team. 2.Arthritis of left knee See above Immunizations Given and Recorded Vaccine Date Status Refusal Reason influenza virus vaccine, inactivated 02/12/24 Give n RSV Vaccine Unspecified 04/16/23 Recorded SARS COVID Vaccine Unspecified 04/16/23 Recorded SARS-CoV-2 (COVID-19) mRNA-1273 vaccine 1 08/21/20 Recorded SARS-CoV-2 (COVID-19) mRNA-1273 vaccine 2 07/24/20 Recorded tetanus/diphtheria/pertuss, acel (Tdap) 02/04/16 G iven 1Result Comment: 2020-11-23: Historical information-source unspecified 2Result Comment: 2020-11-23: Historical information-source unspecified Medications aspirin 81 mg oral delayed release tablet Start: 06/29/22 9:14:00 AM EST, 1 tab, PO, Daily Start Date: 06/29/22 Status: Ordered atorvastatin 80 mg oral tablet Start: 03/04/24 7:45:00 AM EDT, 1 tab, PO, Daily, Disp# 90 tab, Refills: 3, Pharmacy: [facility] Start Date: 03/04/24 Status: Ordered clobetasol 0.05% topical cream Start: 03/04/24 7:45:00 AM EDT, 1 appl, topical, bid, Disp# 15 g, Refills: 1, Pharmacy: [facility] Start Date: 03/04/24 Status: Ordered levothyroxine 200 mcg (0.2 mg) oral tablet Start: 03/04/24 12:59:00 PM EDT, 1 tab, PO, Daily, Disp# 90 tab, Refills: 0, in addtion to 25mcg daily, Pharmacy: [facility] Start Date: 03/04/24 Stop Date: 06/02/24 Status: Ordered levothyroxine 25 mcg (0.025 mg) oral tablet Start: 03/18/24 3:01:00 PM EST, 1 tab, PO, Daily, Disp# 90 tab, Refills: 3, Pharmacy: [facility] Start Date: 03/18/24 Status: Ordered Zepbound Pen 2.5 mg/0.5 mL subcutaneous solution Start: 03/14/24 11:09:00 AM EST, 2.5 mg =, subQ, q7days, Disp# 2 mL, Refills: 12, Pharmacy: [facility] Start Date: 03/14/24 Stop Date: 04/11/24 Status: Ordered Mental Status 05/30/24 Barriers to Learning one year None evide nt, Other: Mandatory Health Literacy Documentation Yes Health Literacy Communication Barriers N ever Primary Language Mongolian Problem List Condition Confirmation Course Effective Dates Status H ealth Status Informant Abnormal uterine bleeding (AUB) Confirmed Active Arthritis of knee, right Confirmed Active Arthritis of left knee Confirmed Active S/P right knee arthroscopy Confirmed Active History of ischemic stroke Confirmed Active Hyperlipidemia Confirmed Active Hypothyroid Confirmed Active Weight disorder Confirmed Active Diagnosis Diagnosis Type Effective Dates Health Status Clinical Service Informant Encounter for pre-operative examination Discharge Diagnosis 05/30/24 Non-Specified Arthritis of left knee Discharge Diagnosis 05/30/24 Non-Specified Procedures Procedure Date Related Diagnosis Body Site Status Dilation and curettage 08/06/23 Co mpleted Right knee arthroscopy, harlan droplasty, partial lateral meniscectomy, loose body removal, excision of plica, EUA 02/12/19 Completed Hernia 2009 Completed tubal ligation 1992 Completed section - at term 07/20/89 Completed [place] tooth Completed Vital Signs Most recent to oldest [Reference Range]: 1 Height 167.4 cm (05/30/24 10:57 AM) Patient Weight 118.3 kg (05/30/24 10:57 AM) Body Mass Index 42.22 kg/m2 (05/30/24 10:57 AM) Heart Rate 86 bpm (05/30/24 10:57 AM) Respiratory Rate 17 br/min (05/30/24 10:57 AM) Blood Pressure 126/62mmHg (05/30/24 10:57 AM) Social History Social History Type Response Smoking Status Never smoked cigaret bhavana Sex Female Sex Representation Female (finding) FCM Outpt Note * KERRIE Longoria, Yasmine Merchant: PERFORM Event Display: FCM Outpt Note Authored Date: [id number] Assessment/Plan 1.Encounter for pre-operative examination Mimi seen for radha-operative risk stratification. They report no cardiac symptoms at rest oron exertion. They have no history of _ischemic heart disease, CHF, CVD, diabetes, EtOH/drug abuse, recent anticoagulant or antithrombotic use, personal or family history of coagulopathy, or CKD. Theyreport no history of _undergoing a stress test, cardiac catheterization, or coronary revascularizati on. They report being able to achieve4-10METs of activity. _This patient's cardiac risk factorsinclude history of CVA, no residual deficits. According to the RCRI, this number of risk factors stratifies the patient to ClassI, which carries with it a3.9%risk of major adverse cardiac event, such as WI, cardiacarrest, or .These risks, along with the risk of radha-operative stroke,were discussed with the patient, in light of the benefits of possible surgery._ wishes to proceed with the operation. This assessment was conveyed to the requesting physician/surgery team. 2.Arthritis of left knee See above Chief Complaint pre op 06.24.24 L knee replacement, Dr. franks. History of Present Illness PRE-OPERATIVE EVALUTION Patient is a59 year-oldfemalepresenting today for their pre-operative history and physical examination for the above-noted surgery with Joe. She had a right knee arthroscopy and chondroplasty. Failed Euflexxa and corticosteroid injections. She has already completed his EKG and labs. She is scheduled for (L) knee TKA with Dr. Franks on 06/24/24. She did have her preoperative testing done with [facility]. She did need her UA repeated due to contamination. EKG and other labs were unremarkable She does have a history of CVA in 05/29. She remains on ASA 81mg daily with no residual effects Requested by:Dr. Franks Planned surgery: (L) knee TKA [X]Intermediate risk(intraperitoneal, intrathoracic, CEA, head/ neck, ortho, urologic, prostate) Exercise tolerance: 3-6 METS [Moderate]:fast walk; stationery bike; fast dance; rake leaves; garden; push mowing Bleeding tendency:Denies h/o bleeding disorders or blood clots Substance use:None Prior anesthesia:No history of anesthesia complications with prior surgeries Revised Cardiac Risk Index: Score=0 [0] Higher Risk Surgery (intraperitoneal, intrathoracic, supra-inguinal vascular) [0] Ischemic Heart Disease [0] History of CHF [0] History of cerebrovascular disease [0] Insulin therapy for DM [0] Pre-op Cr >2 Total Score= 0 Review of Systems General:Normal energy. No fevers, chills or night sweats. HEENT:No blurred vision, loss of vision, diplopia, rhinorrhea, congestion or sore throat. Cardiovascular:No chest pain, palpitations, tachycardia, bradycardia, pre syncope or syncope. Respiratory:No cough, shortness of breath or wheezing. Gastrointestinal:No nausea, vomiting, diarrhea, constipation, abdominal pain or heartburn. Genitourinary:No dysuria, hematuria, urinary frequency or urgency. Musculoskeletal: Per hPI Skin:No change in skin, hair or nails. No rashes. Neurologic:No headaches, dizziness, weakness, seizures, confusion or loss of balance. Psychiatric:see HPI. Endocrine:LMP: Hematological:No easy bruising or bleeding. Other:N/A Physical Exam Vitals & Measurements HR:86(Monitored) RR:17 BP:126/62 SpO2:98% HT:167.4cm WT:118.300kg(Dosing) WT:118.3kg BMI:42.22 PHQ2 Data(Data Documented on:05/30/2024 10:55) Emotional health assessment NEGATIVE General: Alert and oriented,No acute distress,Very pleasant Well groomed Eye: Pupils are equal, round and reactive to light,Extraocular movements are intact,Normal conjunctiva. HENT: Normocephalic, Neck: Supple,No lymphadenopathy. Respiratory: Lungs are clear to auscultation,Respirations are non- labored,Breath sounds are equal,Symmetrical chest wall expansion. Cardiovascular: Normal rate,Regular rhythm,No murmur,No gallop,No edema. Abdomen: Normoactive BS x 4. No R/G/R. No organomegaly. Soft, nontender, nondistended Lymphatics: No submandibular, anterior or posterior cervical adenopathy palpable. Musculoskeletal:No functional arthritic changes FROM Normal gait. Integumentary: Warm,[place]. No rashes or changing lesions. Neurologic: Alert,Oriented,Cranial Nerves II-XII are grossly intact. Cognition and Speech: Oriented,Speech clear and coherent,Functional cognition intact. Psychiatric: Cooperative,Appropriate mood & affect,Normal judgment. Problem List/Past Medical History Ongoing Abnormal uterine bleeding (AUB) Arthritis of knee, right Arthritis of left knee History of ischemic stroke Hyperlipidemia Hypothyroid S/P right knee arthroscopy Weight disorder Resolved Bacterial lobar pneumonia Procedure/Surgical History Dilation and curettage| Service Date: 4Right knee arthroscopy, chondroplasty, partial lateral meniscectomy, loose body removal, excision of plica, EUA| Service Date: 02/12/2019Hernia| Service Date: 2009tubal ligation| Service Date: 1992Cesarean section - at term| Service Date: 07/20/1989[place] tooth Medications aspirin(aspirin 81 mg oral delayed release tablet), 81 mg= 1 tab, PO, Daily atorvastatin(atorvastatin 80 mg oral tablet), 80 mg= 1 tab, PO, Daily, 3 refills clobetasol topical(clobetasol 0.05% topical cream), 1 appl, topical, bid, 1 refills levothyroxine(levothyroxine 25 mcg (0.025 mg) oral tablet), 1 tab, PO, Daily, 3 refills levothyroxine(levothyroxine 200 mcg (0.2 mg) oral tablet), 200 mcg= 1 tab, PO, Daily tirzepatide(Zepbound Pen 2.5 mg/0.5 mL subcutaneous solution), 2.5 mg, subQ, q7days Allergies NKA Social History Smoking Status Never smoked cigarettes Alcohol - Low Risk Use:Past - Comments: quit drinking w/ gout and hasn't restarted infrequent Employment/School Status:Retired Exercise Duration (average number of minutes):30 Times per week:5-6 times/week Self assessment:Poor condition 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 High Blood Pressure: Father. Health Status Family Member(s) Immunizations Vaccine Date Status influenza virus vaccine, inactivated 02/12/2024 Given RSV Vaccine Unspecified 04/16/2023 Recorded SARS COVID Vaccine Unspecified 04/16/2023 Recorded SARS-CoV-2 (COVID-19) mRNA-1273 vaccine 08/21/2020 Recorded Comments : 2020-11-23: Historical information-source unspecified SARS-CoV-2 (COVID-19) mRNA-1273 vaccine 07/24/2020 Recorded Comments : 2020-11-23: Historical information-source unspecified tetanus/diphtheria/pertuss, acel (Tdap) 02/04/2016 Given Recommendations Health Maintenance Pending(in the next year) OverDue Colorectal Cancer Screening due03/05/16Unknown Frequency Due Adult COVID-19 Vaccination due05/30/24Unknown Frequency Adult Social Determinants of Health Screening due05/30/24Unknown Frequency Pneumococcal Vaccine Adults and Adolescents with Chronic Illness due05/30/24One-time only Shingles Vaccine due05/30/24One-time only Due In Future Adult Influenza Vaccine not due until11/04/24and every 1year Satisfied(in the past 1 year) Satisfied Adult Influenza Vaccine on02/12/24.Satisfied by ESDRAS Turner [place] Body Mass Index on05/30/24.Satisfied by NATALIA Mckeon Emma Electronic Signature on File Electronically Reviewed/Signed by: Yasmine Longoria PA-C Author Signature Dt/Tm:05/30/2024 11:40 AM Department of Family Medicine [facility] Patient Care team information Care Team Personnel Name: MD Desai Christopher Position: Physician - Family Med Member Role: Primary Care Provider Address: [address] [place] [address] Care Team Related Persons Name: XAVI CARRILLO Name: MIKE CARRILLO"
--- OUTSIDE RECORDS SUMMARY | 2024-06-24 05:04 | External Medical Summary | Continuity of Care Document ---
Author Name Unknown Organization [id number] Address [address] [place] [id number] Care Team Providers Care Head Of Operation And Logistics Name Role Phone Yakov Desai Primary Care Physician [phone] Encounter [facility] [id number] Date(s): 05/28/24 - 05/28/24 [facility] [place] [id number] Medicine [address] [place] [id number] Encounter Diagnosis Arthritis of knee, right(Discharge Diagnosis) - 05/28/24 Pre-op exam(Discharge Diagnosis) - 05/29/24 Discharge Disposition: Home or Self Care Attending Physician: KERRIE Hall, Naomie Referring Physician: MD Tiny, Brice A Allergies, Adverse Reactions, Alerts No Known Allergies Immunizations Given and Recorded Vaccine Date Status [...] Daily, Disp# 90 tab, Refills: 3, Pharmacy: [facility] Start Date: 03/04/24 Status: Ordered clobetasol 0.05% topical cream Start: 03/04/24 7:45:00 AM EDT, 1 appl, topical, bid, Disp# 15 g, Refills: 1, Pharmacy: [facility] Start Date: 03/04/24 Status: Ordered levothyroxine 200 mcg (0.2 mg) oral tablet Start: 03/04/24 12:59:00 PM EDT, 1 tab, PO, Daily, Disp# 90 tab, Refills: 0, in addtion to 25mcg daily, Pharmacy: [facility] Start Date: 03/04/24 Stop Date: 06/02/24 Status: Ordered levothyroxine 25 mcg (0.025 mg) oral tablet Start: 03/18/24 3:01:00 PM EST, 1 tab, PO, Daily, Disp# 90 tab, Refills: 3, Pharmacy: [facility] Start Date: 03/18/24 Status: Ordered Zepbound Pen 2.5 mg/0.5 mL subcutaneous solution Start: 03/14/24 11:09:00 AM EST, 2.5 mg =, subQ, q7days, Disp# 2 mL, Refills: 12, Pharmacy: [facility] Start Date: 03/14/24 Stop Date: 04/11/24 Status: Ordered Mental Status 05/28/24 Barriers to Learning one year None evide nt, Other: Mandatory Health Literacy Documentation Yes Health Literacy Communication Barriers N ever Primary Language Tajik Problem List Condition Confirmation Course Effective Dates Status H ealth Status Informant Abnormal uterine bleeding (AUB) Confirmed Active Arthritis of knee, right Confirmed Active Arthritis of left knee Confirmed Active S/P right knee arthroscopy Confirmed Active History of ischemic stroke Confirmed Active Hyperlipidemia Confirmed Active Hypothyroid Confirmed Active Weight disorder Confirmed Active Diagnosis Diagnosis Type Effective Dates Health Status Cl inical Service Informant Arthritis of knee, right Discharge Diagnosis 05/28/24 Pre-op exam Discharge Diagnosis 05/29/24 Non-Specified Procedures Procedure Date Related Diagnosis Body Site Status Dilation and curettage 08/06/23 Co mpleted Right knee arthroscopy, harlan droplasty, partial lateral meniscectomy, loose body removal, excision of plica, EUA 02/12/19 Completed Hernia 2009 Completed tubal ligation 1992 Completed section - at term 3/16/90 Completed Inchelium tooth Completed Vital Signs Most recent to oldest [Reference Range]: 1 Height 167.5 cm (05/28/24 9:05 AM) Patient Weight 118.4 kg (05/28/24 9:05 AM) Body Mass Index 42.2 kg/m2 (05/28/24 9:05 AM) Temperature [36.5-37.9 DegC] 36.4 DegC *LOW* (05/28/24 9:05 AM) Heart Rate 82 bpm (05/28/24 9:05 AM) Blood Pressure 102/70mmHg (05/28/24 9:05 AM) Social History Social History Type Response Smoking Status Never smoked cigaret bhavana Sex Female Sex Representation Female (finding) Pre-OP H & P * KERRIE Hall [place]: PERFORM Event Display: Pre-OP H & P Authored Date: [id number] Name:KANIKA CARRILLO Patient Number:[id number] :1965 Date of Service:05/28/2024 Procedure: Left total knee arthroplasty Chief Complaint pre op left knee History of Present Illness Patient is a59 year-oldfemalepresenting today for their pre-operative history and physical examination for the above-noted surgery with Joe. She had a right knee arthroscopy and [id number]/9/2019. She has intermittent painrecently. She is recently retired an increased amount of outdoor activity. She received 2 Euflexxa injectionsDecember nd they did help her temporarilybut did not provide herlong lasting relief. She has elected proceed with surgicalintervention. Review of Systems DeniesRecent illnesses, colds/flu, pneumonia, COVID or COVID exposures; DeniesFevers, chills, malaise; DeniesChest pain, heart palpitations; DeniesShortness of breath, cough; DeniesHeadacheor blurry vision; DeniesAbdominal pain, nausea, vomiting, diarrhea, or urinary symptoms Physical Exam Vitals & Measurements T:36.4C HR:82(Monitored) BP:102/70 SpO2:99% HT:167.5cm WT:118.4kg WT:118.400kg(Dosing) BMI:42.2 BMI:42.20 kg/m2 General: Pt is well nourished, seated on the exam table AA&O, in NAD, calm and cooperative during exam HENT: Nontraumatic, no gross deformity, hearing and vision grossly in-tact, PERRL Heart: +S1, +S2, RRR, no murmurs appreciated Lungs: CTABL, no wheezing appreciated Focusing on the patient'sleftlower extremity: 2+ DP pulse Sensation to light touch is intact Motor to the gastroc soleus, tibialis anterior, and EHL is 5/5. Able to perform straight leg raise. +Medialjoint line tenderness. -Anton's Ligamentous examination exhibits: Stable Liset 0 mm anterior translation and firm endpoint Posterior drawer stable Varus stress at 0 and 30 stable Valgus stress at 0 and 30 stable -Effusion Range of motion 0to 100 Diagnostic Results OAseriesof theleft kneeobtained today at [facility] bilateral AP standing, 45 degree flexion PAview, hips to ankles, and left kneelateral and sunrise views;and personally interpreted by Dr Abreu severe [id number] arthritis. Incidental findings of right knee medial joint space narrowing and marginal osteophytes. 3varus on left, 2varus on right. Assessment/Plan 1.Arthritis of knee, right Preop The risks and benefits of surgery as well as the post operative course was explained and discussed with the patient. Written consent obtained. The patient's past medical history, surgeries, social history, medication list, allergies and PDMP were reviewed and confirmed with the patient. Shane needmedical clearance. She has an appointment 05/30 with her PCP. She does not need a PAT appointment. She recently had a hysterectomy done at [facility] in her uterine liningin August 2023. She is doing well from this surgery.She has had a EKG and chestx-ray in the past year and there is no need to repeat today. Other preoperative orders were placed. We discussed postoperative pain medications includingoxycodone, tylenol,as well as icing and elevating to control pain. We discussed post operative DVT prophylaxis,ASA 81mg BID x 6 weeks, TEDstockings x 3 weeks. Patientmay needthe following additional medications after surgery -stool softener as needed to prevent constipation while on narcotics, Multi-vitamin OR Vitamin C 500mg BIDx 2 weeks, Iron 324mg BID x 2 weeks to promote healing. The patient has been scheduled for post operative appointments. She will be doing HH x 2 weeks and then outpatient PT with us. Order was placed for a walker. The patient was given a preoperative booklet and we reviewed the most pertinent thin gs leading up to the surgery and the day of surgery; including any assisted devices pt may need, when/who to call for the surgery time, where to arrive the day of surgery, NPO after midnight, medications to hold, prepping the skin with CHG to prevent infection etc. All of their questions and concerns were answered today. They were instructed to call our office if they have any further questionsor concerns. Problem List/Past Medical History Ongoing Abnormal uterine [...] at term| Service Date: 07/20/1989Wisdom tooth Medications Home aspirin(aspirin 81 mg oral delayed release tablet), [...] Self assessment:Poor condition Exercise type:Walking - Comments: administrative services manager - [employer] Nutrition/Health Diet description:needs [...] information-source unspecified tetanus/diphtheria/pertuss, acel (Tdap) 02/04/2016 Given Electronic Signature on File Electronically Reviewed/Signed by: Naomie Hall PA-C Author Signature Dt/Tm:05/28/2024 10:54 AM Physician Cutting Tool Sharpener, Dept. of Orthopaedics and Sports Medicine [facility] - [address], [address] [address] Electronically Reviewed/Signed by: Brice Franks MD Cosigner Signature Dt/Tm: 05/29/2024 08:30 AM [facility] Orthopaedics Camera Engineer Department of Orthopaedics and Rehabilitation [facility] [address], [place], [place] [address] MK Patient Care team information Care Team Personnel Name: MD Desai Christopher Position: Physician - Family Med Member Role: Primary Care Provider Address: [address] [place] [id number] [place] Care Team Related Persons Name: XAVI CARRILLO Name: MIKE CARRILLO"
[2024-06-24] MEDS: LR 60ML/HR IV SCH (05:59)
[2024-06-24] MEDS: LR 500ML BOLUS, THEN 15ML/HR IV SCH (05:59)
[2024-06-24] MEDS: ACETAMINOPHEN 500 MG TAB PO SCH ×2 (06:00→13:38)
[2024-06-24] MEDS: CeleBREX 200 MG CAP PO SCH ×2 (06:00→20:14)
[2024-06-24] MEDS: Scopolamine 1 MG TDSY TD SCH (06:00)
[2024-06-24] MEDS ORDERED: BUPIVACAINE 0.5 % 5 MG/1 ML PF 10ML VIAL ONE (06:24)
[2024-06-24] MEDS ORDERED: EPINEPHrine INJ 1 MG/ML AMP ONE (06:24)
[2024-06-24] MEDS ORDERED: BUPIVACAINE 0.25% PF 30 ML VIAL ONE (06:24)
[2024-06-24] MEDS ORDERED: DEXAMETHASONE SOD INJ 4 MG/ML VIAL ONE (06:24)
--- NOTE | 2024-06-24 06:40 | History & Physical Bridge Note ---
Date of Service June 24, 2024 History & Physical Bridge Note I have examined the patient, reviewed the History & Physical and in the interval since the performance of the History & Physical I have noted the following changes of clinical significance: no changes noted
[2024-06-24] MEDS ORDERED: MIDAZOLAM HCL 1 MG/ML 2ML VIAL ONE ×2 (06:54→08:16)
[2024-06-24] MEDS ORDERED: fentaNYL citrate PF 100 MCG/2 ML VIAL ONE (06:54)
[2024-06-24] MEDS: TRANEXAMIC ACID 1,000 MG **IV Pre-op IV SCH (06:59)
[2024-06-24] MEDS: ceFAZolin 2000MG 2,000 MG/15 ML SYR IV SCH ×2 (07:12→16:04)
[2024-06-24] MEDS ORDERED: PROPOFOL IV EMULSION 10 MG/ML 20 ML VIAL IV ONE ×4 (07:16→09:38)
[2024-06-24] MEDS ORDERED: LIDOCAINE 2% 2 ML VIAL/AMP(20MG/ML) INFIL ONE (07:16)
[2024-06-24] MEDS ORDERED: KETAMINE HCL 10MG/ML SYR ONE (07:32)
[2024-06-24] MEDS ORDERED: ONDANSETRON INJ 2 MG/ML 2 ML VIAL ONE (07:47)
[2024-06-24] MEDS: ROPIV 0.5% 246mg, Ketorolac 30mg, EPINEPHrine 0.5mg in NSS INFIL SCH (08:01)
[2024-06-24] MEDS: ORTHO JOINT ANESTHETIC ONE (08:01)
[2024-06-24] MEDS ORDERED: PHENYLEPHRINE 100MCG/ML 5ML SYR ONE (08:04)
[2024-06-24] MEDS ORDERED: ePHEDrine sulfate 50 MG/ML AMP ONE (08:04)
[2024-06-24] MEDS: TRANEXAMIC ACID 1,000 MG **IV Intra-op IV SCH (09:19)
--- NOTE | 2024-06-24 09:54 | Post Operative Brief Note ---
Immediate Post Op Note Date of Surgery June 24, 2024 Pre & Post Diagnosis Operation Date: 06/24/24 07:00 Pre-Op Diagnosis: Left Knee Osteoarthritis Post-Op Diagnosis: Left Knee Osteoarthritis I identified the patient and participated in the time-out.: Yes Procedure Operation Date: 06/24/24 07:00 Actual Procedures p Left Total Knee Arthroplasty(Left) - Brice Franks MD Surgeon Brice Franks MD Digital Imager Wilma Hall PA-C (No fellow avail) Estimated Blood Loss 50 Findings Consistent with Post-Op Diagnosis Fluids 2000 cc Specimens Left knee contents Anesthesia Type MAC Spinal Regional Complications none
--- NOTE | 2024-06-24 09:55 | Operative Report ---
Post Operative Report Pre & Post Diagnosis Operation Date: 06/24/24 07:00 Pre-Op Diagnosis: Left Knee Osteoarthritis Post-Op Diagnosis: Left Knee Osteoarthritis I identified the patient and participated in the time-out.: Yes Procedure Operation Date: 06/24/24 07:00 Actual Procedures p Left Total knee replacement, imageless computer assisted navigation (Left) - Brice Franks MD Surgeon Brice Franks MD Noodle Catalyst Maker Wilma Hall PA-C (No fellow avail) Estimated Blood Loss 50 Findings See Below Examined Under Anesthesia: ROM -- There was 0 degrees to 125 degrees of flexion Ligamentous examination -- revealed stable Liset, posterior drawer, varus and valgus stress at 0 and 30 degrees. Outerbridge Grade IV changes of medial and Patellofemoral compartments, Grade II-III changes lateral compartment. Marginal osteophytes. Fluids 2000 cc Specimens Left knee contents Anesthesia Type MAC Spinal Regional Complications none Indications This is a 59-year-old female who has clinical and radiographic findings consistent with osteoarthritis of the a left knee. I recommended that a left total knee replacement be performed. The patient understands the risks of surgery, which include but not limited to: bleeding, infection, re-operation, damage to nerves and arteries, continued knee pain, knee stiffness, DVT, and . The patient understands all these instructions and explanations, all his questions have been satisfactorily addressed, and the patient has elected to proceed. Informed consent was signed. Description of Procedure IMPLANTS: 1. Femur: Triathlon #3 Left PS, with distal pegs. 2. Tibia: Triathlon #3 Eaton. 3. Insert: Triathlon #3 x 9 mm PS X3 poly. 4. Patella: Triathlon A35 x 10 mm X3 poly. 5. Palacos cement. Wilma Hall PA-C is assisting with positioning, retracting, and closure due to fellow not available. Procedure: The patient was taken to the Operating Room and placed in the supine position after spinal and adductor canal nerve block was administered. My initials and a multidisciplinary time-out were used to identify the left leg as the correct operative limb. A tourniquet was placed high in the thigh. Prior to the incision, 2 grams of intravenous Ancef were given. One g of TXA was given pre- operatively and another after the tourniquet was released. The left leg was then prepped and draped in a standard sterile fashion. An Esmarch was used to exsanguinate the leg and the tourniquet was inflated to 250 mmHg. The planned mid-line 20 cm incision was created exposing the extensor mechanism. The medial parapatellar arthrotomy was made and the patella was everted. The patella was addressed first. It was prepared by reaming from 23 mm down to 13 mm. An A35 button was found to fit best. The peg holes were made in the standard fashion. The femur was addressed next and using computer assisted OrthoAlign with 3 degrees of flexion and 0 degrees of valgus, removing 9 mm in the standard fashion for the distal cut. After making the Tibial cut and checking the balancing using OrthoAlign Lantern, the 4-in-1 cutting block for a size 3 femur was placed. These cuts and the cuts to place the box were made in the standard fashion. The distal peg were created after testing knee stability with trial components in and using the trial femur as a guide in the standard fashion. The tibia cut with using imageless computer assisted OrthoAlign, taking 2 mm from the medial low side. There was sufficient extension and flexion gap to fit a 9 mm spacer. A #3 Tibial baseplate fit well. A trial with a 9 mm spacer showed excellent stability in both flexion and extension, with good ligament balance, and thumbs free patellar tracking. Range of motion of 0-130 degrees. The tibial baseplate was prepped for the keel and stem. All components were removed. 90 ml of total knee cocktail were injected into the soft tissues and periosteum. All surfaces were copiously irrigated prior to placement of the components. The femoral component followed by Tibial baseplate were cemented in place and the 9 mm X3 poly was placed. Next, the patellar button was placed using the same cement. Once the cement had cured, the range of motion and stability were unchanged. The tourniquet was deflated. Hemostasis was obtained. Another 1g TXA was given. The extensor mechanism was closed with 1-0 Vicryl and 0 Stratafix with the knee bent approximately 60 degrees in a standard fashion. The peritenon and deep fascia was closed with 2-0 Vicryl. The subcutaneous layer was closed with 3-0 Vicryl. The skin was closed with Zipline and shield. The limb was cleaned and dried. 4x4 dressing was placed over top followed by ABDs, sterile Webril, and a foot to thigh Gray bandage. The patient was then transferred to the Recovery Room in stable condition. The sponge and needle counts were correct. POST-OP INSTRUCTIONS: The patient will be WBAT. The patient will be admitted to the hospital. Complete 24-hour course antibiotics. Labs will be obtained during the stay. DVT prophylaxis will include Eliquis for 6 weeks, TEDs, and mechanical foot pumps. The dressing will be changed postop day #2-3 and covered with a Silverlon dressing. I attest to the content of the Intraoperative Record and any orders documented therein. Any exceptions are noted below.
[2024-06-24] MEDS ORDERED: ATROPINE SULFATE 0.1 MG/ML 10ML SYR IV PRN (10:11)
[2024-06-24] MEDS ORDERED: ePHEDrine sulfate 50 MG/ML AMP IV PRN (10:11)
[2024-06-24] MEDS ORDERED: ONDANSETRON INJ 2 MG/ML 2 ML VIAL IV PRN ×2 (10:11→11:52)
[2024-06-24] MEDS ORDERED: fentaNYL citrate PF 100 MCG/2 ML VIAL IV PRN (10:11)
--- NOTE | 2024-06-24 10:14 | Anesthesiology Progress Note ---
Date of Service June 24, 2024 Anesthesia Post Procedure Vital Signs Vital Signs: Temp Pulse Resp BP Pulse Ox O2 Del Method 06/24/24 05:38 36.7 C 88 20 125/71 93 Room Air Transfer of Care Handoff Completed per policy Notes Mental Status: alert / awake / arousable Patient Amnestic to Procedure: Yes Nausea / Vomiting: adequately controlled Pain: adequately controlled Airway Patency, RR, SpO2: stable & adequate BP & HR: stable & adequate Hydration State: stable & adequate Neuraxial Anesthesia: was administered and sensory block is resolving Anesthetic Complications: no major complications apparent and Pt Satisfied with anesthetic care
[2024-06-24] MEDS ORDERED: HYDROmorphone INJ 0.5 MG/0.5 ML SYR IV PRN (11:52)
[2024-06-24] MEDS ORDERED: bisacodyL 10 MG SUPP PR PRN (11:52)
[2024-06-24] MEDS ORDERED: diphenhydrAMINE Capsule 25 MG CAP PO PRN (11:52)
[2024-06-24] MEDS ORDERED: METOCLOPRAMIDE HCL INJ 5 MG/ML 2 ML VIAL IV PRN (11:52)
[2024-06-24] MEDS ORDERED: NALOXONE HCL 0.4 MG/1 ML VIAL/CARP IV PRN (11:52)
[2024-06-24] MEDS ORDERED: MAGNESIUM HYDROXIDE SUSP 30 ML UDC PO PRN (11:52)
[2024-06-24] MEDS: FERROUS GLUCONATE 324 MG TAB PO SCH (16:04)
[2024-06-24] MEDS: Scopolamine CHECK PATCH PLACEMENT SCH (16:04)
[2024-06-24] MEDS: ASCORBIC ACID 500 MG TAB PO SCH (16:04)
[2024-06-24] MEDS: oxyCODONE HCL IR 5 MG TAB (IMMEDIATE RELEASE) PO PRN (17:31)
[2024-06-24] MEDS: ATORVASTATIN 40 MG TAB PO SCH (20:14)
[2024-06-24] MEDS: DOCUSATE SODIUM 100 MG CAP PO SCH (20:14)
[2024-06-24] MEDS: SENNA 8.6 MG TAB PO SCH (20:14)
--- NOTE | 2024-06-25 01:07 | XRay Report ---
EXAM: XR knee LT 1 or 2V routine CLINICAL HISTORY: Surgical Post-operation TECHNIQUE: X-ray images of the left knee were obtained in anteroposterior (AP) and cross-table lateral projections. COMPARISON: preoperative X-ray 03/05/2024. FINDINGS: Bone Structure: Total knee replacement with proper positions of the femoral and tibial components of the prosthesis. Bone structure is normal and well-aligned. No evidence of acute fractures or dislocations. No lytic or sclerotic osseous lesions or abnormalities identified. Mild pneumoarthrosis with small joint effusion leveling. Soft Tissues: Small periarticular soft tissues surgical emphysema. No soft tissue swelling, calcifications, or foreign bodies noted. IMPRESSION: 1. Left total knee replacement in the proper position. 2. Post-operative soft tissue surgical emphysema and pseudoarthrosis with effusion; generally expected up to 5 days post-operative. 3. For correlation with the surgical assessment and follow-up. Disclaimer: A subtle bone abnormality or fracture may not be readily apparent on X-rays, thus clinical correlation and further imaging including follow-up CT, MRI, or follow-up X-rays are advised as needed. Electronically signed by Ruperto South 06-25-2024 01:06 AM
[2024-06-25] MEDS: LEVOTHYROXINE SODIUM 112 MCG TABLET PO SCH (05:41)
[2024-06-25 07:33] VITALS: PULSE 69; RESP 18; TEMP 98.1; O2SAT 98
[2024-06-25] MEDS: MULTIVITAMIN TAB PO SCH (08:16)
[2024-06-25] MEDS: APIXABAN 2.5 MG TAB PO SCH (08:16)
[2024-06-25 08:44] LABS: Hematocrit (blood only) 38.6 % (37.0-47.0); Hemoglobin 12.4 g/dl (12.0-16.0); Mean Corpuscular Hemoglobin 27.7 pg (25.0-34.0); Mean Corpuscular Hgb Conc 32.1 g/dL (32.0-36.0); Mean Corpuscular Volume 86.4 fL (80.0-100.0); Platelet Count 249 K/uL (130-400); RDW Standard Deviation 44.7 fL (36.4-46.3); Red Blood Count 4.47 M/uL (4.20-5.40); White Blood Count 11.14 K/ul (4.8-10.8)
--- NOTE | 2024-06-25 08:59 | Orthopedic Progress Note ---
Date of Service June 25, 2024 Assessment & Plan (1) S/P total knee arthroplasty: Plan: Postop day 1-status post left total knee arthroplasty with Dr. Franks. She may be out of bed, weight-bear as tolerated on her left lower extremity with the assistance of a walker. PT and OT to start this morning. Eliquis 2.5 mg twice daily started this morning for DVT prophylaxis. THEODORA stockings x 3 weeks bilateral lower extremities (once dressing is changed on the left leg). AV impulse boots while in house. Continue regular diet. Home medications were resumed. She did have some low blood pressure readings this morning but improved since being up out of bed. Continue pain control with Tylenol, Celebrex and oxycodone as needed. Case management for disposition needs. She should have home health arrangements set up preoperatively. Findings will be discussed with Dr. Franks. Follow-up on labs as her BMP is currently pending. Mildly elevated WBC most likely from recent surgery and Decadron dosages. Will plan for follow-up tomorrow for dressing changes outpatient. Plan for discharge home today if safe and PT and OT and pain well-controlled. Discharge instructions were reviewed. All questions were answered. Admission and Anticipated Discharge Date Admission Date: June 24, 2024 Elvia Spears is resting in bed. States that she started having pain early this morning, but much improved with the oxycodone dose this morning. She had not had Celebrex or Tylenol throughout the night. Pain was mainly in her thigh. She states yesterday her pain was well-controlled. She has noted that she has normal sensation and movement of her left leg. She has been out of bed with nursing. She has been applying ice. She denies any numbness or tingling. Denies any chest pain or shortness of breath. Is not lightheaded or dizzy. Tolerated her regular diet. Physical Exam Musculoskeletal: Exam of her left lower extremity: Postoperative dressing is clean, dry and intact. Distal sensation is intact. Distal pulses are 1+. Full toe and ankle range of motion with normal strength. She is able to independently lift her left leg off the stool about an inch. Tolerates logrolling of her left hip. No significant edema. Results & Data Vital Signs (Past 12 Hours) Vital Signs Temp Pulse Pulse Resp BP BP Pulse Ox 06/25/24 07:27 36.7 C 69 75 18 105/66 98/64 L 98 06/25/24 03:30 36.4 C L 64 14 92/55 L 94 06/24/24 23:59 36.6 C 57 L 14 99/58 L 98 O2 Del Method 06/25/24 07:27 Room Air 06/25/24 03:30 Room Air 06/24/24 23:59 Room Air Laboratory Results 06/25/24 Range/Units 08:20 WBC 11.14 H (4.8-10.8) K/ul RBC 4.47 (4.20-5.40) M/uL Hgb 12.4 (12.0-16.0) g/dl Hct 38.6 (37.0-47.0) % MCV 86.4 (80.0-100.0) fL MCH 27.7 (25.0-34.0) pg MCHC 32.1 (32.0-36.0) g/dL RDW Std Deviation 44.7 (36.4-46.3) fL RDW Coeff of Carlos 14.0 (11.5-14.5) % Plt Count 249 (130-400) K/uL MPV 10.0 (9.4-12.4) fL Sodium Pending Potassium Pending Chloride Pending Carbon Dioxide Pending Anion Gap Pending BUN Pending Creatinine Pending Est Cr Clr Drug Dosing Pending eGFR Pending BUN/Creatinine Ratio Pending Glucose Pending Calcium Pending Diagnostic Findings Knee X-Ray 06/24/24 10:15 EXAM: XR knee LT 1 or 2V routine CLINICAL HISTORY: Surgical Post-operation TECHNIQUE: X-ray images of the left knee were obtained in anteroposterior (AP) and cross-table lateral projections. COMPARISON: preoperative X-ray 03/05/2024. FINDINGS: Bone Structure: Total knee replacement with proper positions of the femoral and tibial components of the prosthesis. Bone structure is normal and well-aligned. No evidence of acute fractures or dislocations. No lytic or sclerotic osseous lesions or abnormalities identified. Mild pneumoarthrosis with small joint effusion leveling. Soft Tissues: Small periarticular soft tissues surgical emphysema. No soft tissue swelling, calcifications, or foreign bodies noted. IMPRESSION: 1. Left total knee replacement in the proper position. 2. Post-operative soft tissue surgical emphysema and pseudoarthrosis with effusion; generally expected up to 5 days post-operative. 3. For correlation with the surgical assessment and follow-up. Disclaimer: A subtle bone abnormality or fracture may not be readily apparent on X-rays, thus clinical correlation and further imaging including follow-up CT, MRI, or follow-up X-rays are advised as needed. Electronically signed by Ruperto South 06-25-2024 01:06 AM
--- NOTE | 2024-06-25 09:06 | Discharge Summary ---
Date of Service June 25, 2024 Discharge Data Procedures Performed Operation Date: 06/24/24 07:00 Actual Procedures p Left Total Knee Arthroplasty(Left) - Brice Franks MD Hospital Course (1) S/P total knee arthroplasty: Patient was kept in observation at [facility] after undergoing an elective left total knee arthroplasty with Dr. Franks on June 24, 2024. Her surgery was performed with spinal anesthesia, peripheral nerve block and IV sedation. She tolerated the procedure well without any intraoperative complications. In the recovery room and x-ray of the left knee was obtained and shows a stable left knee prosthesis with no evidence of fracture or malalignment. She is allowed out of bed, weight-bear as tolerated on the left lower extremity with the assistance of a walker. Physical therapy and Occupational Therapy consults were placed. Case management consult was placed for disposition needs. She was prescribed Tylenol, Celebrex and oxycodone and IV Dilaudid to use as needed for pain. She was given a regular diet. Her home medications were continued. She was given THEODORA stockings, AV impulse boots during her inpatient stay and started on Eliquis 2.5 mg p.o. twice daily which will be used for 6 weeks after surgery for DVT prophylaxis. On postoperative day 1 she had some increased pain early in the a.m. and her blood pressure dropped. She did not develop any postoperative nausea, vomiting, lightheadedness or dizziness. Was placed in the bed. Her blood pressure improved and she was given oxycodone for pain. Her pain was well-controlled on oral oxycodone. Her vital signs remained stable during her inpatient stay. Her blood work showed a little elevated white blood count but nothing unexpected due to her Decadron dose and surgical procedure. She was instructed to ice and elevate. Postop dressings were left in place. They were clean, dry and intact. She was out of bed with physical therapy and Occupational Therapy. They deemed her safe for discharge to home. Disposition needs were arranged. She was discharged to her home in stable condition on June 25, 2024. Discharge instructions were reviewed. Follow-up appointment has been scheduled for dressing change.
[2024-06-25 09:09] LABS: BUN Creatinine Ratio 16.5 (10-20); Calcium 9.3 mg/dl (8.6-10.3); Creatinine Clr Calc Pharmacy 85.7 ml/min; Potassium 3.9 mmol/L (3.5-5.1)
[2024-06-25 10:30] VITALS: BP 98/64
== END 2024-06-25 11:00 | disposition home health service (06) ==
LOC: PACUINP 04:58 → ASU 04:58 → 3N 12:01